=== PATIENT | female | born 1965 | race Caucasian/White ===

== ENCOUNTER 2023-12-29 11:10 | Emergency (ER) | payer OTHER, SELFPAY ==
[2023-12-29] VITALS (8 sets, daily range): BP systolic 109–153; BP diastolic 68–97; BMI 28.6
[2023-12-29 12:56] LABS: % Basophils 0.6 % (0-2); % Immature Granulocytes 0.2 % (0-0.5); % Monocytes 9.2 % (1.7-9.3); Absolute Eosinophils 0.3 10^3/uL (0-0.7); Absolute Lymphocytes 2.2 10^3/uL (1.2-3.4); Absolute Monocytes 0.6 10^3/uL (0.1-0.6); Absolute Neutrophils 3.2 10^3/uL (1.4-6.5); Hematocrit 34.3 % (37.0-47.0); Hemoglobin 11.9 g/dL (12.0-16.0); Mean Corp Hgb Conc. 34.7 g/dL (33.0-37.0); Mean Corpuscular Hgb 29.7 pg (27.0-31.0); Mean Corpuscular Volume 85.5 fL (81.0-99.0); Mean Platelet Volume 9.8 fL (7.4-10.4); Nucleated Red Blood Cells % 0 %; Platelet Count 276 10^3/uL (130-400); Red Blood Cell Count 4.01 10^6/uL (4.20-5.40); Red Cell Dist. Width 12.2 % (11.5-14.5); White Blood Cell Count 6.3 10^3/uL (4.8-10.8)
[2023-12-29 13:22] LABS: ALT (SGPT) 19 U/L (0-35); AST (SGOT) 26 U/L (14-36); Albumin 4.2 g/dl (3.5-5.0); Alkaline Phosphatase 71 U/L (38-126); Blood Urea Nitrogen 18 mg/dl (7-17); Calcium 8.9 mg/dl (8.4-10.2); Carbon Dioxide 25 mmol/L (22-30); Chloride 104 mmol/L (98-107); Estimated Creatinine Clearance 76 ml/min; Glucose 89 mg/dl (70-99); Lipase 73 U/L (23-300); Potassium 4.3 mmol/L (3.5-5.1); Sodium 140 mmol/L (135-145); Total Bilirubin 0.3 mg/dl (0.2-1.3); Total Protein 6.6 g/dl (6.3-8.2); eGFR > 60.00
[2023-12-29 13:25] LABS: NT-proBNP 50.5 pg/ml; Troponin I < 0.012 ng/ml
--- NOTE | 2023-12-29 13:49 | ED.GENMED ---
History of Present Illness
General
Chief Complaint: Blood Pressure Problem
Source: patient
Exam Limitations: none
Time Seen by Provider: 12/29/23 12:02
Nursing documentation reviewed up to this point in time: agreed with
History of Present Illness
History of Present Illness:
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
Says over the last 6 weeks or so she has noticed she has had episodes where she feels lightheaded. It will come on all of a sudden. Usually gets with walking or standing or exertion. About 2 or 3 weeks ago she noticed when she was walking up a
hill with one of her friends she had to stop because she became short of breath. This is unusual for her because she is very active. 2 days ago while playing pickle ball she got very lightheaded and felt like she was going to pass out. She had to
sit down and she did recover. She never had any chest pain, heart racing, shortness of breath. She ended up buying a new blood pressure cuff and checking her blood pressure over the last 2 days which is varied from what her baseline is which is
110s over 70s down to about high 90s over 60s. Her heart rates have been in the 60s to 90s range as well. She has not actually passed out or had any chest pain, palpitations. She has been eating and drinking normally. She does not feel
dehydrated.
She is a non-smoker
Past History
Past History
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
ED Past Surgical History: Cholecystectomy
Social History
Tobacco: Non-smoker
Alcohol: Occasional
Personal:
Living: with family
Review of Systems
Review of Systems
Allergies reviewed?: Yes
All Other Systems: Not applicable
Phy Exam
Physical Exam
Physical Exam:
GENERAL: Alert , in no apparent distress
EYE: pupils equal and reactive
NECK: Supple
ENT: o/p clr, mmm.
CARDIAC: Regular rate and rhythm .HR 50s-70s; no edema, no murmur
LUNGS: Clear breath sounds bilaterally, no acute respiratory distress, no wheezes/rales/rhonchi
ABDOMEN: Soft, without focal tenderness, no r/g, no cvat, normal bowel sounds
NEUROLOGICAL: Alert and oriented, no focal neuro deficits
SKIN: Warm and dry, skin intact.
MUSCULOSKELETAL: No edema, well perfused. neg maya's sign
PSYCH: Normal and appropriate interaction.
Course
Orders/Labs/Results
Orders:
Orders
12/29/23 11:17
ECG [Electrocardiogram (*1)] Urgent
Reason for Study: Vertigo / Dizzy
EKG- Treatment ONCE
12/29/23 12:33
CR Chest - 2 Views Urgent
Comment:
Reason For Exam: fatigue, GOMEZ
12/29/23 12:45
Complete Blood Count/With Diff Urgent
Comprehensive Metabolic Panel Urgent
Lipase Urgent
NT-proBNP Urgent
TSH Reflex To Free T4 Urgent
Troponin I Urgent
12/29/23 13:47
0.9% Sodium Chloride 1000 ml [Nss] 1,000 ml IV BOLUS
Abnormal Lab Results
12/29/23
12:45
RBC 4.01 L 10^6/uL
(4.20-5.40)
Hgb 11.9 L g/dL
(12.0-16.0)
Hct 34.3 L %
(37.0-47.0)
BUN 18 H mg/dl
(7-17)
12/29/23 12:45
12/29/23 12:45
Vital Signs
Initial and Last Documented VS:
Initial Vital Signs
Temp Pulse Resp BP Pulse Ox
98.6 F 72 20 153/91 98
12/29/23 11:14 12/29/23 11:14 12/29/23 11:14 12/29/23 11:14 12/29/23 11:14
Last Documented Vital Signs
Temp Pulse Resp BP Pulse Ox
98.6 F 52 17 121/82 100
12/29/23 11:14 12/29/23 14:45 12/29/23 14:45 12/29/23 14:00 12/29/23 14:45
MDM/Problems Addressed
Differential Diagnosis Includes:
chf, symptomatic bradycardia, anemia, orthostasis
MDM/Problems Addressed:
58 y/o F
lightheadedness/near syncope feeling intermitently
has had some fatigue for a few weeks and then very rare GOMEZ but more lightheaded feeling the past few days
taking bp at home
normal is 110/60 and she had readings 90s/60s and was concerned
no fever/chills
no bp meds
no cp, sob, heart racing/irregularity to HR, vomiting, leg swelling etc
pt appears well
bp is actually higher here, 120s-150s and she does not tilt with bp but hr did go up and she felt lighteaded briefly with standing
ekg nonischemic
labs reassuring with mild elevation LFTs rena twill jut need f/u
d/w ed attending
unlikely to be sypmtomatic bradycardia, with lowest HR 50s
pt has not had syncopal event
do not suspect dysrythemia, no rpeceeding irregularity or chest pain
ok for outpatient f/u with cards and PCP
*Critical Care Note
Total Time (30-74mins, 75-104mins- exclusive of procedures): Not Applicable
ED Attending Note
-
Portions of this chart may have been created with voice recognition software.� Occasional wrong word or��sound alike� substitutions may have occurred due to the inherent limitations of voice recognition software.
Discharge Plan
Departure
Patient Disposition: Home (Routine Discharge)
Date of Disposition: 12/29/23
Time of Disposition: 15:16
Patient with high blood pressure during this ER visit?: No
Condition: Fair
Covid-19: Not Applicable
Discharge Problem:
Lightheadedness
Instructions: Dizziness, Nonvertigo, (DC)
Prescriptions:
No Action
amoxicillin-pot clavulanate 875-125 mg tablet
1 tab PO BID Qty: 19 0RF
Referrals:
Suleiman Carbajal MD [Active] - Follow up in 5-7 days
Candiec Anderson MD [Family Provider] - Follow up in 2-3 days
Activity Restrictions/Additional Instructions:
Were not sure what was causing your lightheadedness but your blood work, EKG, chest x-ray were all reassuring.Your blood pressures were not low here. Make sure to stay hydrated. Sit on the side of the bed for moment before getting up. It is a
good idea to get checked out by boiler erector. They may want you to wear a monitor for a couple of days to be sure you are not having any abnormal rhythms or rates causing your symptoms. Your heart rate was in the 50s here which is not usually low
enough to cause symptoms of lightheadedness. Your thyroid level was borderline low so you may need to decrease your thyroid medication. Talk to your family doctor about this. Please return to the ER should you pass out or become worse shortness
of breath or to have chest pain, palpitations, headache, room spinning dizziness, etc. Otherwise follow-up with both your family doctor and your boiler erector
Interventions
Interventions:
*Risk Screen - Suicide Last Done: 12/29/23 11:49
*General Assessment Last Done: 12/29/23 11:14
*Neglect/Abuse Screening Last Done: 12/29/23 11:49
ED- Fall Risk Assessment Last Done: 12/29/23 11:49
*ED COVID-19 Vaccine History Last Done: 12/29/23 11:49
*Nursing Disposition Last Done: 12/29/23 15:27
ED- Cardiac Assessment Last Done: 12/29/23 11:49
ED- Neurological Assessment Last Done: 12/29/23 11:49
ED- Pulmonary Assessment Last Done: 12/29/23 11:49
Discharge Date and Time
Discharge Date/Time: 12/29/23 15:31
Print Language: [id number]
[2023-12-29 13:52] LABS: TSH Reflex To Free T4 0.91 uIU/ml (0.47-4.68)
[2023-12-29] MEDS: NSS 1000 IV (13:54)
== END 2023-12-29 15:31 | disposition home or self-care (01) ==
LOC: EMR 11:10
PROVIDERS: Physician Assistant; EMERGENCY PHYSICIAN Emergency Medicine; FAMILY PHYSICIAN Family Medicine
DX: R42 Dizziness and giddiness (principal); E03.8 Other specified hypothyroidism
CPT/HCPCS: 99285; 96360; 71046; 80053; 83690; 83880; 84443; 84484; 85025; 93005

== ENCOUNTER → 2024-03-16 10:12 | Outpatient (REF) | payer OTHER, SELFPAY | LOC: RCS 10:12 | PROVIDERS: ATTENDING PHYSICIAN Internal Medicine; FAMILY PHYSICIAN Family Medicine | DX: R42 Dizziness and giddiness (principal) | CPT/HCPCS: 93225; 93226 ==

== ENCOUNTER → 2024-03-22 13:57 | Outpatient (REF) | payer OTHER, SELFPAY | LOC: HWRCS 13:57 | PROVIDERS: ATTENDING PHYSICIAN Internal Medicine; FAMILY PHYSICIAN Family Medicine | DX: R03.0 Elevated blood-pressure reading, without diagnosis of hypertension (principal) | CPT/HCPCS: 93306 ==

== ENCOUNTER → 2024-03-25 10:20 | Outpatient (REF) | payer OTHER, SELFPAY | LOC: RCS 10:20 | PROVIDERS: ATTENDING PHYSICIAN Internal Medicine; FAMILY PHYSICIAN Family Medicine | DX: R06.09 Other forms of dyspnea (principal) | CPT/HCPCS: 93017 ==

== ENCOUNTER → 2024-04-09 12:41 | Outpatient (REF) | payer OTHER, SELFPAY | LOC: RCS 12:41 | PROVIDERS: ATTENDING PHYSICIAN Internal Medicine; FAMILY PHYSICIAN Family Medicine | DX: R06.09 Other forms of dyspnea (principal); R42 Dizziness and giddiness; R03.0 Elevated blood-pressure reading, without diagnosis of hypertension | CPT/HCPCS: 93017; 93350 ==

== ENCOUNTER → 2024-04-11 08:40 | Outpatient (REF) | payer OTHER, SELFPAY | LOC: RSP 08:40 | PROVIDERS: ATTENDING PHYSICIAN Internal Medicine; FAMILY PHYSICIAN Family Medicine | DX: R06.09 Other forms of dyspnea (principal) | CPT/HCPCS: 94727; 94729; 88738; 94010 ==